=== PATIENT | male | born 1945 | race Caucasian/White ===

== ENCOUNTER 2019-11-16 08:32 | Inpatient (IN) | payer OTHER ==
[~2019-11-16] VITALS: Ht 175.3 cm; Wt 103.0 kg
[2019-11-16 10:00] LABS: BASOPHILS ABSOLUTE AUTO 0.05 K/mm3 (0.00-0.23); BASOPHILS PERCENT AUTO 0 % (0-2); EOSINOPHILS ABSOLUTE AUTO 0.01 K/mm3 (0.00-0.68); EOSINOPHILS PERCENT AUTO 0 % (0-6); Hematocrit 47.3 % (37.0-53.0); Hemoglobin 15.8 g/dL (13.5-17.5); IMMATURE GRAN ABSOLUTE AUTO 0.13 K/mm3 (0.00-0.10); IMMATURE GRAN PERCENT AUTO 1 % (0-1); LYMPHOCYTES ABSOLUTE AUTO 2.46 K/mm3 (0.84-5.20); LYMPHOCYTES PERCENT AUTO 15 % (21-46); MONOCYTES ABSOLUTE AUTO 1.27 K/mm3 (0.16-1.47); MONOCYTES PERCENT AUTO 8 % (4-13); Mean Corpuscular HGB 29.5 pg (26.0-34.0); Mean Corpuscular HGB Conc 33.4 g/dL (31.5-36.5); Mean Corpuscular Volume 88 fL (80-100); Mean Platelet Volume 12.1 fL (9.1-12.4); NEUTROPHILS PERCENT AUTO 76 % (41-73); Platelet Count 232 K/mm3 (150-400); RDW Coefficient Variation 12.7 % (11.7-14.2); RDW Standard Deviation 41.3 fL (35.1-46.3); Red Blood Cell Count 5.36 M/mm3 (4.30-5.90); White Blood Cell Count 16.22 K/mm3 (4.00-11.30)
[2019-11-16 10:21] LABS: Alanine Aminotransfer (ALT/SGP 406 U/L (12-78); Albumin, Blood 4.2 g/dL (3.4-5.0); Alk Phos 224 U/L (50-136); Anion Gap 12 mmol/L (6-16); Aspartate Aminotrans (AST/SGOT 464 U/L (12-37); Bilirubin, Total 3.4 mg/dL (0.1-1.0); Blood Urea Nitrogen 26 mg/dL (8-24); Bun/Creatinine Ratio 27.7 (12.0-20.0); CO2, Blood 23 mmol/L (21-32); Calcium, Blood 9.9 mg/dL (8.5-10.1); Chloride, Blood 101 mmol/L (98-108); Creatinine, Blood 0.94 mg/dL (0.60-1.20); Globulin, Blood 4.3 g/dL (2.2-4.0); Glomerular Filtration Rate >60 (60-); Glucose, Blood 457 mg/dL (70-99); Potassium, Blood 3.7 mmol/L (3.5-5.5); Sodium, Blood 136 mmol/L (136-145); Total Protein, Blood 8.5 g/dL (6.4-8.2)
[2019-11-16 11:23] LABS: Source, Urine Clean Catch
[2019-11-16 11:32] LABS: Bilirubin, Urine Neg (Neg); Blood, Urine 1+ (Neg); Glucose Qualitative, Urine 4+ (Neg); Ketones, Urine 3+ (Neg); Leukocyte Esterase, Urine Neg (Neg); Nitrite, Urine Neg (Neg); Protein, Urine 2+ (Neg); Urobilinogen, Urine 1+ (Normal)
[2019-11-16 11:42] LABS: Appearance, Urine Clear (Clear); Color, Urine Yellow (P-Yellow)
[2019-11-16 11:43] LABS: Bacteria Not Seen /hpf; Red Blood Cells, Urine 0-2 /hpf (0-2); Squamous Epithelial Cells Few /hpf (Few); White Blood Cells, Urine Not Seen /hpf (0-5)
[2019-11-16] MEDS ORDERED: AMLODIPINE BESYL5 MG PO (13:46)
[2019-11-16] MEDS ORDERED: ALLO300 PO (13:46)
[2019-11-16] MEDS ORDERED: ZESTRIL40 M2 PO (13:46)
--- NOTE | 2019-11-16 17:14 | NUR ---
INTO PACU VSS BLOOD SUGAR TAKEN DRESSING CDI TIMES 4
--- NOTE | 2019-11-16 18:20 | NUR ---
CALLS TO DOCTOR ANGELI AND NURSING DOT NET ARCHITECT ATTEMPTING TO GET PATIENT ADMITTED TO ROOM VSS ARE STABLE. BLOOD DRAW DONE BY LAB WAITING RESULTS OF BLOOD SUGAR. CALL ALSO TO ICU. OVERLAY OPERATOR TALKING TO HOSPITALIST AND WILL TALK ABOUT WHAT UNIT TO ADMIT PATIENT TOO.
[2019-11-16 18:35] LABS: Glucose, Blood 492 mg/dL (70-99)
--- NOTE | 2019-11-16 18:57 | NUR ---
TO PCU WITH RN
--- NOTE | 2019-11-16 19:06 | NUR ---
TO PCU REPORT TO MARTY RN
[2019-11-16 19:13] LABS: Anion Gap 14 mmol/L (6-16); Blood Urea Nitrogen 27 mg/dL (8-24); Bun/Creatinine Ratio 24.1 (12.0-20.0); CO2, Blood 18 mmol/L (21-32); Calcium, Blood 9.2 mg/dL (8.5-10.1); Chloride, Blood 105 mmol/L (98-108); Creatinine, Blood 1.12 mg/dL (0.60-1.20); Glomerular Filtration Rate >60 (60-); Glucose, Blood 491 mg/dL (70-99); Potassium, Blood 5.2 mmol/L (3.5-5.5); Sodium, Blood 137 mmol/L (136-145)
[2019-11-17 05:26] LABS: BASOPHILS ABSOLUTE AUTO 0.04 K/mm3 (0.00-0.23); BASOPHILS PERCENT AUTO 0 % (0-2); EOSINOPHILS PERCENT AUTO 0 % (0-6); Hematocrit 40.3 % (37.0-53.0); Hemoglobin 13.1 g/dL (13.5-17.5); IMMATURE GRAN PERCENT AUTO 1 % (0-1); LYMPHOCYTES ABSOLUTE AUTO 1.58 K/mm3 (0.84-5.20); LYMPHOCYTES PERCENT AUTO 9 % (21-46); MONOCYTES ABSOLUTE AUTO 1.52 K/mm3 (0.16-1.47); MONOCYTES PERCENT AUTO 9 % (4-13); Mean Corpuscular HGB Conc 32.5 g/dL (31.5-36.5); Mean Corpuscular Volume 89 fL (80-100); Mean Platelet Volume 11.8 fL (9.1-12.4); NEUTROPHILS PERCENT AUTO 82 % (41-73); Platelet Count 188 K/mm3 (150-400); RDW Coefficient Variation 13.2 % (11.7-14.2); RDW Standard Deviation 43.3 fL (35.1-46.3); Red Blood Cell Count 4.52 M/mm3 (4.30-5.90); White Blood Cell Count 17.64 K/mm3 (4.00-11.30)
[2019-11-17 05:44] LABS: Alanine Aminotransfer (ALT/SGP 421 U/L (12-78); Albumin, Blood 3.1 g/dL (3.4-5.0); Alk Phos 252 U/L (50-136); Anion Gap 9 mmol/L (6-16); Aspartate Aminotrans (AST/SGOT 311 U/L (12-37); Bilirubin, Total 5.2 mg/dL (0.1-1.0); Blood Urea Nitrogen 29 mg/dL (8-24); Bun/Creatinine Ratio 19.3 (12.0-20.0); CHOL/HDL RATIO 10.4; CO2, Blood 23 mmol/L (21-32); Chloride, Blood 105 mmol/L (98-108); Cholesterol 166 mg/dL (50-200); Glomerular Filtration Rate 49 (60-); Glucose, Blood 313 mg/dL (70-99); HDL Cholesterol 16 mg/dL (>39); LDL/HDL RATIO 6.6; Low Density Lipoprotein Chol 105 mg/dL (0-110); Potassium, Blood 4.2 mmol/L (3.5-5.5); Sodium, Blood 137 mmol/L (136-145); Triglycerides 226 mg/dL (30-160); Very Low Density Lipoprot Chol 45 mg/dL (6-32)
[2019-11-17 05:52] LABS: Albumin/Globulin Ratio 0.9 (0.8-1.8); Globulin, Blood 3.3 g/dL (2.2-4.0)
[2019-11-17 05:53] LABS: Total Protein, Blood 6.4 g/dL (6.4-8.2)
--- NOTE | 2019-11-17 06:42 | NUR ---
SHIFT SUMMARY PT BROUGHT TO PCU-14 @ APPROX 1900 THIS SHIFT FROM PACU. PT A&O X4. VSS. PT DENYING PAIN T/O SHIFT. ABD SOFT & DISTENDED W/ PT REPORTING DISTENTION NORMAL. GAUZE DRESSINGS C/D/I TO ABD. PT UNABLE TO VOID THIS SHIFT DESPITE 3-4 ATTEMPTS. BLADDER SCAN DONE X2 THIS SHIFT W/ EACH SHOWING APPROX 140 & 150 MLS. PT DENIES ABD DISCOMFORT, BUT STATES "IT JUST FEELS LIKE I NEED TO PEE." PT REPORTS LAST VOIDING RIGHT BEFORE SURGERY. LR GTT INFUSING PER ORDERS, PLACED ON STANDY THIS AM D/T PT INABILITY TO VOID & RML & RLL W/ NEW CRACKLES. PT ENCOURAGED TO COUGH, DEEP BREATHE, & USE INCENTIVE SPIROMETER AT BEDSIDE. PT CBG's TRENDING DOWN. PT's CBG MONITORING CHANGED FROM Q4H TO AC&HS PER MARCO COOPER. WILL CONTINUE TO MONITOR AND PROVIDE CARE UNTIL REPORT OFF TO DAY SHIFT RN.
[2019-11-17 12:55] LABS: Albumin, Blood 3.3 g/dL (3.4-5.0); Albumin/Globulin Ratio 0.9 (0.8-1.8); Bilirubin, Total 6.2 mg/dL (0.1-1.0); Bun/Creatinine Ratio 19.9 (12.0-20.0); Calcium, Blood 9.3 mg/dL (8.5-10.1); Creatinine, Blood 1.71 mg/dL (0.60-1.20); Globulin, Blood 3.5 g/dL (2.2-4.0); Potassium, Blood 4.1 mmol/L (3.5-5.5); Total Protein, Blood 6.8 g/dL (6.4-8.2)
--- NOTE | 2019-11-17 13:30 | NUR ---
pt transfered to room 229 from pcu 14 pt in bed wanting to have a nap reviewed labs with rn stated she said saeed is awaiting results
--- NOTE | 2019-11-17 13:33 | NUR ---
PT STATUS CHANGED TO SURGICAL WITH NO TELE. PT VITALS HAS BEEN STABLE. ALERT AND ORIENTED X 4 AT ABSELINE. INDEPENDENT IN THE ROOM. PT DEVELOPED A CRACKLES ON THE RIGHT LOWER LOBES PER NOC SHIFT NURSE IV FLUIDS WERE STOPPED, DR GOODMAN MADE AWARE IV FLUIDS DISCONTINUED. PT TO ADVANCE DIET TOLERATED PER DR. SUH ON CLEAR LIQUIDS AT THIS TIME, TOELRATED WELL. PT ALSO WAS HAVING DIFFICULTY OF VOIDING, BLADDER SCAN SHOWS >999 MLS OF URINE RETAINED, ONE TIME ORDER RECEIVED FOR IN AND OUT STRAIGHT CATH OBTAINED 930 MLS OF URINE DARK YELLOW IN COLOR. PT HAS 4 SURGICAL SITES ON THE ABDOMEN POST CHOLECYSTECTOMY, PT HAD SHOWER THIS AM DRESSING ON THE MID UPPER ABDOMEN WAS REMOVED, DRESSING GOT DAMP IN THE SHOWER, THE REST OF THE DRESSINGS INTACT. STERI STRIPS IN PLACE NO DRAINAGE/REDNESS NOTED. REPORT GIVEN TO MAVIS ORTEGA PT MOVED TO SURGICAL FLOOR ROOM 229.
--- NOTE | 2019-11-17 14:13 | NUR ---
dr tipton by to see pt mri sched screening form given also if pt unable to void again may place blunt cath
--- NOTE | 2019-11-17 14:46 | NUR ---
bladder scan 201 pt unable to void will try again
--- NOTE | 2019-11-17 14:56 | NUR ---
PT TRANSPORTED VIA TO [facility]
--- NOTE | 2019-11-17 16:55 | NUR ---
ASSUMED PATIENT CARE. NO SIGNS OF ACUTE DISTRESS, PATIENT SLEEPING COMFORTABLY IN BED. WCTM.
[2019-11-17 18:41] LABS: Albumin, Blood 3.2 g/dL (3.4-5.0); Albumin/Globulin Ratio 0.9 (0.8-1.8); Bun/Creatinine Ratio 21.6 (12.0-20.0); Calcium, Blood 9.1 mg/dL (8.5-10.1); Creatinine, Blood 1.53 mg/dL (0.60-1.20); Globulin, Blood 3.4 g/dL (2.2-4.0); Potassium, Blood 3.8 mmol/L (3.5-5.5); Total Protein, Blood 6.6 g/dL (6.4-8.2)
--- NOTE | 2019-11-17 19:21 | NUR ---
RELINQUISHED PATIENT CARE.
[2019-11-18 02:40] LABS: Source, Urine Catheter
[2019-11-18 02:43] LABS: Blood, Urine 5+ (Neg); Glucose Qualitative, Urine 3+ (Neg); Ketones, Urine 1+ (Neg); Leukocyte Esterase, Urine 1+ (Neg); Nitrite, Urine Neg (Neg); Protein, Urine 2+ (Neg); Specific Gravity, Urine 1.015 (1.003-1.022); Urobilinogen, Urine 2+ (Normal)
[2019-11-18 03:01] LABS: Appearance, Urine Hazy (Clear); Bilirubin, Urine 2+ (Neg); Color, Urine Amber (P-Yellow)
[2019-11-18 03:02] LABS: Amorphous Light (0-Heavy); Bacteria Few /hpf; Squamous Epithelial Cells Rare /hpf (Few)
[2019-11-18 04:07] LABS: BASOPHILS ABSOLUTE AUTO 0.04 K/mm3 (0.00-0.23); BASOPHILS PERCENT AUTO 0 % (0-2); EOSINOPHILS PERCENT AUTO 1 % (0-6); Hemoglobin 12.7 g/dL (13.5-17.5); IMMATURE GRAN ABSOLUTE AUTO 0.06 K/mm3 (0.00-0.10); IMMATURE GRAN PERCENT AUTO 1 % (0-1); LYMPHOCYTES ABSOLUTE AUTO 1.42 K/mm3 (0.84-5.20); LYMPHOCYTES PERCENT AUTO 14 % (21-46); MONOCYTES ABSOLUTE AUTO 0.93 K/mm3 (0.16-1.47); MONOCYTES PERCENT AUTO 9 % (4-13); Mean Corpuscular HGB 28.9 pg (26.0-34.0); Mean Corpuscular HGB Conc 32.6 g/dL (31.5-36.5); Mean Corpuscular Volume 89 fL (80-100); Mean Platelet Volume 11.8 fL (9.1-12.4); NEUTROPHILS ABSOLUTE AUTO 7.42 K/mm3 (1.96-9.15); NEUTROPHILS PERCENT AUTO 75 % (41-73); Platelet Count 162 K/mm3 (150-400); RDW Coefficient Variation 13.7 % (11.7-14.2); RDW Standard Deviation 44.2 fL (35.1-46.3); Red Blood Cell Count 4.39 M/mm3 (4.30-5.90); White Blood Cell Count 9.97 K/mm3 (4.00-11.30)
[2019-11-18 04:29] LABS: Albumin, Blood 2.9 g/dL (3.4-5.0); Albumin/Globulin Ratio 0.9 (0.8-1.8); Bun/Creatinine Ratio 22.2 (12.0-20.0); Calcium, Blood 8.7 mg/dL (8.5-10.1); Creatinine, Blood 1.26 mg/dL (0.60-1.20); Globulin, Blood 3.4 g/dL (2.2-4.0); Potassium, Blood 3.7 mmol/L (3.5-5.5); Total Protein, Blood 6.3 g/dL (6.4-8.2)
--- NOTE | 2019-11-18 04:53 | NUR ---
SHIFT SUMMARY: ELIZABET IS A&0X4. HE IS POD2 TODAY FOR A LAP ALPHONSO. MRCP DONE YESTERDAY. HE IS TOLERATING PO INTAKE WELL. HE WAS UNABLE TO VOID AFTER MULTIPLE ATTEMPTS. PHELAN PLACED PER ORDER OBTAINED AND DOCUMENTED BY DAY SHIFT RN, UA SENT, CULTURE PENDING. HE IS INDEPENDENT TO THE BATHROOM AND IN THE HALLWAY. DRESSINGS X 4 ON ABDOMEN C/D&I. HE IS ABLE TO MAKE HIS NEEDS KNOWN. HIS DAUGHTER IS REQUESTING A HEMOGLOBIN A1C. HE IS LYING IN BED WITH HIS CALL LIGHT IN REACH. WILL REPORT TO DAY SHIFT RN.
--- NOTE | 2019-11-18 09:38 | NUR ---
AGREE WITH STUDENT NURSE SHIFT ASSESSMENT AND DOCUMENTATION.
[2019-11-18 10:59] LABS: Alanine Aminotransfer (ALT/SGP 268 U/L (12-78); Albumin, Blood 3.1 g/dL (3.4-5.0); Albumin/Globulin Ratio 0.8 (0.8-1.8); Alk Phos 354 U/L (50-136); Anion Gap 9 mmol/L (6-16); Aspartate Aminotrans (AST/SGOT 100 U/L (12-37); Bilirubin, Total 6.2 mg/dL (0.1-1.0); Blood Urea Nitrogen 27 mg/dL (8-24); Bun/Creatinine Ratio 23.5 (12.0-20.0); CO2, Blood 23 mmol/L (21-32); Calcium, Blood 9.1 mg/dL (8.5-10.1); Chloride, Blood 104 mmol/L (98-108); Creatinine, Blood 1.15 mg/dL (0.60-1.20); Globulin, Blood 3.7 g/dL (2.2-4.0); Glomerular Filtration Rate >60 (60-); Glucose, Blood 298 mg/dL (70-99); Potassium, Blood 3.8 mmol/L (3.5-5.5); Sodium, Blood 136 mmol/L (136-145); Total Protein, Blood 6.8 g/dL (6.4-8.2)
--- NOTE | 2019-11-18 17:04 | NUR ---
SHIFT SUMMARY ELIZABET IS POST OP DAY 2 FOR A LAP ALPHONSO. HE IS A/O X4 AND INDEPENDENT TO THE BATHROOM AND HALLWAY. A PHELAN WITH A LEG BAG IS IN PLACE AND DRAINING HARLEY COLORED URINE. PT REPORTS PASSING FLATUS BUT HAS NOT HAD A BM. SPUTUM SAMPLE WAS OBTAINED AND IS AWAITING CULTURE. INCISION SITES X4 ON ABD OPEN TO AIR. PT IS SCHEDULED FOR A HIDA SCAN TOMORROW.
[2019-11-19 04:44] LABS: Alanine Aminotransfer (ALT/SGP 204 U/L (12-78); Albumin, Blood 2.8 g/dL (3.4-5.0); Albumin/Globulin Ratio 0.7 (0.8-1.8); Alk Phos 404 U/L (50-136); Anion Gap 8 mmol/L (6-16); Aspartate Aminotrans (AST/SGOT 75 U/L (12-37); Bilirubin, Total 6.4 mg/dL (0.1-1.0); Blood Urea Nitrogen 22 mg/dL (8-24); Bun/Creatinine Ratio 21.2 (12.0-20.0); CO2, Blood 24 mmol/L (21-32); Calcium, Blood 8.7 mg/dL (8.5-10.1); Chloride, Blood 105 mmol/L (98-108); Creatinine, Blood 1.04 mg/dL (0.60-1.20); Globulin, Blood 3.8 g/dL (2.2-4.0); Glomerular Filtration Rate >60 (60-); Glucose, Blood 216 mg/dL (70-99); Potassium, Blood 3.8 mmol/L (3.5-5.5); Sodium, Blood 137 mmol/L (136-145); Total Protein, Blood 6.6 g/dL (6.4-8.2)
--- NOTE | 2019-11-19 06:30 | NUR ---
SHIFT SUMMARY: ELIZABET RESTED COMFORTABLY DURING THE NIGHT. PHELAN PATENT. HE IS INDEPENDENT IN THE ROOM. HE DENIES ANY BM YET, BUT STATES THAT HE HAS PASSED GAS. HE IS TOLERATING PO INTAKE WELL. HE DENIES THE NEED FOR PAIN MEDICATION. VSS. HE IS LYING IN BED WITH HIS CALL LIGHT IN REACH. WILL REPORT TO DAY SHIFT RN.
--- NOTE | 2019-11-19 07:24 | NUR ---
11/19/19 0724 Shyann Serrano VERIFICATIONS: EDIT CHART.
--- NOTE | 2019-11-19 09:47 | NUR ---
THIS RN AGREES WITH STUDENT NURSE SHIFT ASSESSMENT AND DOCUMENTATION.
--- NOTE | 2019-11-19 14:26 | NUR ---
PT TRANSPORTED BY AMBULANCE AT 1420 TO [facility] FOR ERCP PROCEDURE. PT LEFT WITH ALL PERSONAL BELONGINGS. TRANSFER PAPER WORK GIVEN TO MEDICAL BILLING INSTRUCTOR. IV DC'D,
--- NOTE | 2019-11-19 14:47 | NUR ---
REPORT GIVEN TO EFFIE ORTEGA AT [facility].
== END 2019-11-19 14:20 | disposition short-term general hospital (02) | DRG 419 ==
LOC: ER 08:32 → SURS 08:34 → PCU 08:34 → ER 13:23 → PCU 13:23 → SURS 11-17 13:42
PROVIDERS: Emergency Medicine; Internal Medicine; Nurse Practitioner Acute Care; ADMIT Surgery
PROC: 0FT44ZZ Resection of Gallbladder, Percutaneous Endoscopic Approach (ICD-10-PCS; principal; 2019-11-19)
PROC: BF101ZZ Fluoroscopy of Bile Ducts using Low Osmolar Contrast (ICD-10-PCS; 2019-11-19)
DX: K81.0 Acute cholecystitis (principal); M10.9 Gout, unspecified; I10 Essential (primary) hypertension; E11.65 Type 2 diabetes mellitus with hyperglycemia
CPT/HCPCS: 36415; 51701; 71045; 74181; 74300; 76705; 80048; 80053; 80061; 81001; 82947; 83036; 83690; 84484; 85025; 87070; 87077; 87086; 87186; 87205; 88304; 93005; 93010; 96374; 96375; 96376; 99285-25; A9270-GY; J1170; J1815; J1885; J2370; J2405; J2543; J2704; J2710; J2765; J3010; J7030; J7120; U0002

== ENCOUNTER → 2024-03-29 | Outpatient (CLI) | payer OTHER ==
[~2024-03-29] MED LIST: ALLO300 PO; AMLODIPINE BESYL5 MG PO; ZESTRIL40 M2 PO
[2024-03-29 16:52] LABS: Bun/Creatinine Ratio 25.9 (12.0-20.0); Calcium, Blood 9.4 mg/dL (8.5-10.1); Creatinine, Blood 1.08 mg/dL (0.60-1.20); Uric Acid, Blood 5.7 mg/dL (3.5-7.2)
[2024-03-29 19:56] LABS: Creatinine, Urine Random 40.9 mg/dL (27.00-270.00); Microalb/Creat Ratio UR, Rand 625.917 mg/g (0.000-30.000)
== END | disposition home or self-care (01) ==
LOC: LAB 09:55 → LAB SHORT 09:55
PROVIDERS: Physician Assistant
DX: E11.21 Type 2 diabetes mellitus with diabetic nephropathy (principal); M10.9 Gout, unspecified; R60.0 Localized edema
CPT/HCPCS: 80048; 82043; 82570; 83036; 83880; 84550

== ENCOUNTER 2025-02-07 08:04 | Day surgery (SDC) | payer OTHER ==
[2025-02-07] VITALS (8 sets, daily range): BP systolic 115–179; BP diastolic 68–85
[~2025-02-07] VITALS: Ht 175.3 cm; Wt 104.5 kg
[~2025-02-07 08:04] MED LIST changes: +Aspir 8181 MG PO; +FURO40 PO; +NITR.6SL SL
[2025-02-07] MEDS ORDERED: FARXIGA10 MG PO (08:38)
[2025-02-07] MEDS ORDERED: ATOR40TA PO (08:38)
[2025-02-07] MEDS ORDERED: Midazolam HCl 1MG / ML 2ML Vial ONE (09:19)
[2025-02-07] MEDS ORDERED: NS 1,000 ML IV ONE ×2 (09:19→09:20)
[2025-02-07] MEDS ORDERED: FentaNYL Citrate 50 MCG/ML 2 ML Injection ONE (09:19)
[2025-02-07] MEDS ORDERED: Verapamil HCL 2.5 MG/ML 2ML Injection ONE (09:19)
[2025-02-07] MEDS ORDERED: Heparin Sodium 1000 Units/ML 10ML MDV ONE (09:20)
[2025-02-07] MEDS ORDERED: NS 250 ML IV ONE (09:20)
--- NOTE | 2025-02-07 12:00 | NUR ---
2 CC AIR RELEASED FROM TR BAND, NO BLEEDING OR HEMATOMA NOTED.
--- NOTE | 2025-02-07 12:09 | NUR ---
3 CC AIR REMOVED FROM TR BAND. NO BLEEDING OR HEMATOMA NOTED.
--- NOTE | 2025-02-07 12:23 | NUR ---
ALL REMAINING AIR RELEASED FROM TR BAND, WNL
--- NOTE | 2025-02-07 13:36 | NUR ---
PT UP AND DRESSED WITH MINIMAL ASSIST. TR BAND REMOVED. SITE CLEANSED AND CLOTH DOT APPLIED. ARM BOARD PLACED, INSTRUCTED PT TO LEAVE ON FOR TWO DAYS. SALINE LOCK REMOVED WITH CATHETER INTACT, DRESSING APPLED. DISCHARGE GONE OVER WITH PT, VERBALIZES UNDERSTANDING OF INSTRUCTIONS. PT TO PRIVATE VEHICLE PER W/C WITH ONE STAFF.
== END 2025-02-07 13:30 | disposition home or self-care (01) ==
LOC: MHTC 08:04 → ORSCMMR 08:06 → MHTC 08:16
DX: R94.39 Abnormal result of other cardiovascular function study (principal); I13.0 Hypertensive heart and chronic kidney disease with heart failure and stage 1 through stage 4 chronic kidney disease, or unspecified chronic kidney disease; E11.22 Type 2 diabetes mellitus with diabetic chronic kidney disease; N18.9 Chronic kidney disease, unspecified; I50.30 Unspecified diastolic (congestive) heart failure; I35.8 Other nonrheumatic aortic valve disorders; I45.2 Bifascicular block; E78.5 Hyperlipidemia, unspecified; I87.2 Venous insufficiency (chronic) (peripheral); R60.9 Edema, unspecified; E66.3 Overweight; Z68.33 Body mass index [BMI] 33.0-33.9, adult; Z79.82 Long term (current) use of aspirin; Z79.84 Long term (current) use of oral hypoglycemic drugs; Z79.899 Other long term (current) drug therapy
CPT/HCPCS: 76937; 93454; 99152; 99153; C1769; C1887; C1894; J1644; J2250; J3010; J7030; J7050; Q9967